=== PATIENT | male | born 1990 | race Asian ===

== ENCOUNTER 2020-01-23 10:45 | Emergency (ER) | payer OTHER ==
[~2020-01-23] VITALS: Ht 170.2 cm; Wt 68.0 kg
[2020-01-23 10:52] VITALS: BP 132/84
--- NOTE | 2020-01-23 11:00 | NUR ---
COVID SWAB OBTAINED AND SENT TO LAB.
--- NOTE | 2020-01-23 11:02 | NUR ---
Patient discharged to home in stable condition. Written and verbal after care instructions given. Patient verbalizes understanding of instruction.
== END 2020-01-23 11:02 | disposition home or self-care (01) ==
LOC: ER 10:46
DX: Z03.818 Encounter for observation for suspected exposure to other biological agents ruled out (principal)
CPT/HCPCS: 99283; U0003

== ENCOUNTER 2020-02-17 17:05 | Emergency (ER) | payer OTHER ==
[~2020-02-17] VITALS: Ht 177.8 cm; Wt 70.3 kg
[2020-02-17 18:08] VITALS: BP 127/80
== END 2020-02-17 18:18 | disposition home or self-care (01) ==
LOC: ER 17:05
DX: Z11.59 Encounter for screening for other viral diseases (principal)
CPT/HCPCS: 99283; C9803; U0003

== ENCOUNTER 2020-02-25 17:03 | Emergency (ER) | payer OTHER ==
[~2020-02-25] VITALS: Ht 177.8 cm; Wt 70.3 kg
[2020-02-25 17:10] VITALS: BP 125/80
--- NOTE | 2020-02-28 06:26 | NUR ---
COVID TEST NEGATIVE
== END 2020-02-25 17:43 | disposition home or self-care (01) ==
LOC: ER 17:03
DX: Z03.818 Encounter for observation for suspected exposure to other biological agents ruled out (principal)
CPT/HCPCS: 99283; C9803; U0003

== ENCOUNTER 2020-03-16 15:44 | Emergency (ER) | payer OTHER ==
[~2020-03-16] VITALS: Ht 177.8 cm; Wt 70.3 kg
[2020-03-16 15:51] VITALS: BP 126/78
--- NOTE | 2020-03-16 16:27 | NUR ---
Patient discharged to home in stable condition. Written and verbal after care instructions given. Patient verbalizes understanding of instruction. Pt ambulatory with a steady gait
--- NOTE | 2020-03-16 16:27 | NUR ---
COVID SWAB DONE AND SENT TO LAB
== END 2020-03-16 16:28 | disposition home or self-care (01) ==
LOC: ER 15:45
DX: Z11.59 Encounter for screening for other viral diseases (principal)
CPT/HCPCS: 99283; C9803; U0003

== ENCOUNTER 2020-03-22 16:18 | Emergency (ER) | payer OTHER ==
[~2020-03-22] VITALS: Ht 175.3 cm; Wt 74.8 kg
[2020-03-22 16:19] VITALS: BP 135/81
--- NOTE | 2020-03-22 16:53 | NUR ---
COVID SWAB DONE AND SENT TO LAB
--- NOTE | 2020-03-22 16:53 | NUR ---
Patient discharged to home in stable condition. Written and verbal after care instructions given. Patient verbalizes understanding of instruction. Pt ambulatory with a steady gait
== END 2020-03-22 17:19 | disposition home or self-care (01) ==
LOC: ER 16:21
DX: Z11.59 Encounter for screening for other viral diseases (principal)
CPT/HCPCS: 99283; C9803; U0003

== ENCOUNTER 2020-03-30 16:23 | Emergency (ER) | payer OTHER ==
[~2020-03-30] VITALS: Ht 175.3 cm; Wt 74.8 kg
--- NOTE | 2020-03-30 16:25 | NUR ---
Called NO response
[2020-03-30 16:34] VITALS: BP 128/77
--- NOTE | 2020-03-30 16:37 | NUR ---
COVID SWAB OBTAINED AND SENT TO LAB.
--- NOTE | 2020-03-30 16:41 | NUR ---
Patient discharged to home in stable condition. Written and verbal after care instructions given. Patient verbalizes understanding of instruction.
== END 2020-03-30 16:41 | disposition home or self-care (01) ==
LOC: ER 16:23
DX: Z03.818 Encounter for observation for suspected exposure to other biological agents ruled out (principal)
CPT/HCPCS: 99283; C9803; U0003

== ENCOUNTER 2020-04-08 16:05 | Emergency (ER) | payer OTHER ==
[~2020-04-08] VITALS: Ht 175.3 cm; Wt 74.8 kg
[2020-04-08 16:40] VITALS: BP 138/75
== END 2020-04-08 16:41 | disposition home or self-care (01) ==
LOC: ER 16:06
DX: R03.0 Elevated blood-pressure reading, without diagnosis of hypertension (principal)
CPT/HCPCS: 99283; C9803; U0003

== ENCOUNTER 2020-04-20 10:03 | Emergency (ER) | payer OTHER ==
[~2020-04-20] VITALS: Ht 175.3 cm; Wt 74.8 kg
[2020-04-20 10:04] VITALS: BP 135/81
--- NOTE | 2020-04-20 10:24 | NUR ---
covid swab collected and sent to lab
--- NOTE | 2020-04-20 10:26 | NUR ---
Patient discharged to home in stable condition. Written and verbal after care instructions given. Patient verbalizes understanding of instruction.
== END 2020-04-20 10:26 | disposition home or self-care (01) ==
LOC: ER 10:03
DX: Z00.8 Encounter for other general examination (principal); Z20.828 Contact with and (suspected) exposure to other viral communicable diseases
CPT/HCPCS: 99283; C9803; U0003

== ENCOUNTER 2020-04-27 16:55 | Emergency (ER) | payer OTHER ==
[~2020-04-27] VITALS: Ht 175.3 cm; Wt 74.8 kg
[2020-04-27 16:59] VITALS: BP 135/81
--- NOTE | 2020-04-27 17:28 | NUR ---
Patient discharged to home in stable condition. Written and verbal after care instructions given. Patient verbalizes understanding of instruction.
== END 2020-04-27 17:28 | disposition home or self-care (01) ==
LOC: ER 16:55
DX: Z20.828 Contact with and (suspected) exposure to other viral communicable diseases (principal)
CPT/HCPCS: 99283; C9803; U0003

== ENCOUNTER 2020-05-04 10:43 | Emergency (ER) | payer OTHER ==
[~2020-05-04] VITALS: Ht 175.3 cm; Wt 74.8 kg
[2020-05-04 10:47] VITALS: BP 125/80
== END 2020-05-04 11:12 | disposition home or self-care (01) ==
LOC: ER 10:45
DX: Z20.828 Contact with and (suspected) exposure to other viral communicable diseases (principal)
CPT/HCPCS: 99283; C9803; U0003

== ENCOUNTER 2020-05-14 07:28 | Emergency (ER) | payer OTHER ==
[~2020-05-14] VITALS: Ht 170.2 cm; Wt 74.8 kg
[2020-05-14 07:32] VITALS: BP 125/84
== END 2020-05-14 07:48 | disposition home or self-care (01) ==
LOC: ER 07:29
DX: Z20.828 Contact with and (suspected) exposure to other viral communicable diseases (principal)
CPT/HCPCS: 99283; C9803; U0003

== ENCOUNTER 2020-05-18 15:13 | Emergency (ER) | payer OTHER ==
[~2020-05-18] VITALS: Ht 175.3 cm; Wt 76.7 kg
[2020-05-18 15:16] VITALS: BP 134/76
--- NOTE | 2020-05-18 16:08 | NUR ---
covid swab sent. Patient discharged to home in stable condition. Verbal after care instructions given. Patient verbalizes understanding of instruction.
== END 2020-05-18 16:10 | disposition home or self-care (01) ==
LOC: ER 15:13
DX: Z20.828 Contact with and (suspected) exposure to other viral communicable diseases (principal)
CPT/HCPCS: 99283; C9803; U0003

== ENCOUNTER 2020-05-31 14:09 | Emergency (ER) | payer OTHER ==
[~2020-05-31] VITALS: Ht 175.3 cm; Wt 76.7 kg
[2020-05-31 14:11] VITALS: BP 128/81
--- NOTE | 2020-05-31 14:25 | NUR ---
COVID SWAB DONE AND SENT TO LAB
--- NOTE | 2020-05-31 14:29 | NUR ---
Patient discharged to home in stable condition. Written and verbal after care instructions given. Patient verbalizes understanding of instruction.
== END 2020-05-31 14:32 | disposition home or self-care (01) ==
LOC: ER 14:17
DX: Z20.828 Contact with and (suspected) exposure to other viral communicable diseases (principal)
CPT/HCPCS: 99283; C9803; U0003

== ENCOUNTER 2020-06-08 09:59 | Emergency (ER) | payer OTHER ==
[~2020-06-08] VITALS: Ht 175.3 cm; Wt 74.8 kg
[2020-06-08 10:01] VITALS: BP 128/81
--- NOTE | 2020-06-08 10:32 | NUR ---
COVID SWAB SENT. Patient discharged to home in stable condition. Written and verbal after care instructions given. Patient verbalizes understanding of instruction.
--- NOTE | 2020-06-08 10:33 | NUR ---
Patient discharged to home in stable condition. Written and verbal after care instructions given. Patient verbalizes understanding of instruction.
== END 2020-06-08 10:33 | disposition home or self-care (01) ==
LOC: ER 10:01
DX: Z20.828 Contact with and (suspected) exposure to other viral communicable diseases (principal)
CPT/HCPCS: 99283; C9803; U0003

== ENCOUNTER 2020-06-16 09:34 | Emergency (ER) | payer OTHER ==
[~2020-06-16] VITALS: Ht 175.3 cm; Wt 74.8 kg
[2020-06-16 09:39] VITALS: BP 121/84
== END 2020-06-16 10:01 | disposition home or self-care (01) ==
LOC: ER 09:38
DX: Z20.828 Contact with and (suspected) exposure to other viral communicable diseases (principal)
CPT/HCPCS: 99283; C9803; U0003

== ENCOUNTER 2020-06-26 14:09 | Emergency (ER) | payer OTHER ==
[~2020-06-26] VITALS: Ht 175.3 cm; Wt 74.8 kg
[2020-06-26 14:13] VITALS: BP 130/82
--- NOTE | 2020-06-26 14:28 | NUR ---
COVID SPECIMEN COLLECTED AND SENT TO LAB.
--- NOTE | 2020-06-26 14:30 | NUR ---
Patient discharged to home in stable condition. Written and verbal after care instructions given. Patient verbalizes understanding of instruction.
== END 2020-06-26 14:37 | disposition home or self-care (01) ==
LOC: ER 14:10
DX: Z20.828 Contact with and (suspected) exposure to other viral communicable diseases (principal)
CPT/HCPCS: 99283; C9803; U0003

== ENCOUNTER 2020-07-06 07:57 | Emergency (ER) | payer OTHER ==
[~2020-07-06] VITALS: Ht 175.3 cm; Wt 74.8 kg
[2020-07-06 07:59] VITALS: BP 128/71
--- NOTE | 2020-07-06 21:03 | NUR ---
LAB CALLED FOR COVID NEGATIVE RESULTS
== END 2020-07-06 08:15 | disposition home or self-care (01) ==
LOC: ER 07:58
DX: Z20.828 Contact with and (suspected) exposure to other viral communicable diseases (principal)
CPT/HCPCS: 99283; C9803; U0003

== ENCOUNTER 2020-07-13 14:19 | Emergency (ER) | payer OTHER ==
[~2020-07-13] VITALS: Ht 175.3 cm; Wt 74.8 kg
[2020-07-13 14:20] VITALS: BP 125/61
== END 2020-07-13 14:42 | disposition home or self-care (01) ==
LOC: ER 14:19
DX: Z20.828 Contact with and (suspected) exposure to other viral communicable diseases (principal)
CPT/HCPCS: 99283; C9803; U0003